=== PATIENT | male | born 1995 | race Caucasian/White ===

== ENCOUNTER 2023-04-20 17:33 | Emergency (ER) | payer SELFPAY ==
[~2023-04-20] VITALS: Ht 175.3 cm; Wt 85.0 kg
[2023-04-20 17:38] VITALS: O2SAT 97
[2023-04-20] MEDS ORDERED: TETANUS, DIPHTHERIA, PERTUSSIS VAC/PF 0.5ML (>10YR OLD) IM ONE (18:00)
[2023-04-20 20:10] LABS: CLARITY URINE CLEAR (CLEAR); COLOR URINE YELLOW (YELLOW); GLUCOSE URINE NEGATIVE (NEGATIVE); KETONES URINE TRACE (NEGATIVE); LEUKOCYTE ESTERASE URINE NEGATIVE (NEGATIVE); NITRITE URINE NEGATIVE (NEGATIVE); OCCULT BLOOD URINE NEGATIVE (NEGATIVE); PH URINE 5.5 (4.5-8.0); PROTEIN URINE 1+ (NEGATIVE); SPECIFIC GRAVITY URINE 1.009 (1.005-1.030); UROBILINOGEN URINE 0.2 E.U./dL (0.2-1.0)
[2023-04-20 20:41] LABS: BACTERIA URINE 1+; RBC URINE NONE SEEN /hpf (0-2); SQUAMOUS EPITHELIAL CELL URINE FEW /lpf (RARE/1+); WBC URINE 0-2 /hpf (0-2)
[2023-04-20] MEDS ORDERED: IBUPROFEN 400MG TABLET PO ONE (20:45)
[2023-04-20] MEDS ORDERED: ACETAMINOPHEN 650MG/20.3ML UDC PO ONE (20:45)
[2023-04-20 23:10] VITALS: BP 122/77; PULSE 90; RESP 17; TEMP 98
== END 2023-04-20 23:18 | disposition home or self-care (01) ==
LOC: ER 17:33
DX: S01.01XA Laceration without foreign body of scalp, initial encounter (principal); F10.129 Alcohol abuse with intoxication, unspecified; R58 Hemorrhage, not elsewhere classified; Y08.89XA Assault by other specified means, initial encounter; Y93.89 Activity, other specified; Y92.89 Other specified places as the place of occurrence of the external cause; Y99.8 Other external cause status; Y90.0 Blood alcohol level of less than 20 mg/100 ml
CPT/HCPCS: 70486; 81003; 82962; 99284